=== PATIENT | male | born 1955 | race Two or more races ===

== ENCOUNTER → 2018-10-22 | Outpatient (CLI) | payer MEDICARE | LOC: MSC 15:45 | PROVIDERS: ATTEND Anesthesiology | DX: M51.36 Other intervertebral disc degeneration, lumbar region (principal); M46.96 Unspecified inflammatory spondylopathy, lumbar region; E11.42 Type 2 diabetes mellitus with diabetic polyneuropathy; M96.1 Postlaminectomy syndrome, not elsewhere classified; G54.6 Phantom limb syndrome with pain; Z89.511 Acquired absence of right leg below knee; M62.830 Muscle spasm of back; M43.20 Fusion of spine, site unspecified; M79.604 Pain in right leg ==